=== PATIENT | male | born 1940 | race Caucasian/White ===

== ENCOUNTER → 2016-12-13 | Outpatient (CLI) | payer OTHER, BC ==
--- NOTE | 2016-12-13 11:19 | RAD ---
HISTORY: Pneumonia Study: Two view chest Comparison: None Findings: The lungs are clear without consolidation, effusion or pneumothorax. The cardiac and mediastinal co ntours are within normal limits. The soft tissues are unremarkable. IMPRESSION: 1. No acute cardiopulmonary abnormality. Reported By:
== END ==
LOC: RAD 10:27
PROVIDERS: ATTEND Physician Assistant
DX: J18.9 Pneumonia, unspecified organism (principal)
CPT/HCPCS: 71020

== ENCOUNTER → 2017-06-07 | Outpatient (CLI) | payer OTHER, BC ==
[2017-06-07 11:20] LABS: CALCIUM 9.4 mg/dL (8.5-10.1); CARBON DIOXIDE 33.6 mmol/L (21-32); CHOL/HDL RATIO 4.3 (0.0-5.0); CREATININE 2.16 mg/dL (0.70-1.30)
[2017-06-07 11:25] LABS: HEMOGLOBIN A1C 7.7 % (4.5-6.2)
== END ==
LOC: LAB 10:48
PROVIDERS: ATTEND Physician Assistant
DX: E11.49 Type 2 diabetes mellitus with other diabetic neurological complication (principal)
CPT/HCPCS: 36415; 80048; 80061; 83036

== ENCOUNTER → 2017-07-03 | Outpatient (CLI) | payer OTHER, BC ==
[2017-07-03 15:26] LABS: BASOPHILS # (AUTO) 0.1 X10^3/uL (0.0-0.1); BASOPHILS % (AUTO) 0.7 % (0.2-1.0); EOSINOPHILS # (AUTO) 0.1 x10^3/uL (0.0-0.2); HEMATOCRIT 37.6 % (42.0-54.0); HEMOGLOBIN 13.2 g/dL (13.5-18.0); LYMPHOCYTES # (AUTO) 1.4 X10^3/uL (1.3-2.9); LYMPHOCYTES % (AUTO) 18.9 % (21.0-51.0); MEAN CORPUSCULAR HEMOGLOBIN 31.6 pg (27.0-34.0); MEAN CORPUSCULAR VOLUME 90.1 fL (80.0-100.0); MEAN PLATELET VOLUME 6.8 fL (7.4-11.0); MONOCYTES # (AUTO) 0.3 x10^3/uL (0.3-0.8); NEUTROPHILS # (AUTO) 5.6 x10^3/uL (2.2-4.8); NEUTROPHILS % (AUTO) 74.4 % (42.0-75.0); PLATELET COUNT 213 X10^3/uL (150.0-450.0); RED BLOOD COUNT 4.17 X10^6/uL (4.7-6.0); RED CELL DISTRIBUTION WIDTH 14.4 % (11.6-16.5); WHITE BLOOD COUNT 7.5 X10^3/uL (3.6-10.0)
[2017-07-03 15:35] LABS: ALBUMIN 3.6 g/dL (3.4-5.0); BLOOD UREA NITROGEN 81 mg/dL (7-18); CALCIUM 9.8 mg/dL (8.5-10.1); CARBON DIOXIDE 34.3 mmol/L (21-32); CHLORIDE 94 mmol/L (98-107); COR NA(FOR HYPERGLY) 141 mmol/L (136-145); CREATININE 3.84 mg/dL (0.70-1.30); PHOSPHORUS 5.4 mg/dL (2.6-4.7); SODIUM 137 mmol/L (136-145); eGFR BLACK RACES 20 (>60); eGFR NON BLACK RACES 16 (>60)
[2017-07-03 16:28] LABS: HEMOGLOBIN A1C 8.2 % (4.5-6.2)
[2017-07-03 18:58] LABS: CREATININE,URINE 68.05 mg/dL (40-278); TOTAL PROTEIN,URINE 26.1 mg/dl (0-11.9)
== END ==
LOC: LAB 14:58
PROVIDERS: ATTEND Nurse Practitioner Family
DX: E11.9 Type 2 diabetes mellitus without complications (principal); I12.9 Hypertensive chronic kidney disease with stage 1 through stage 4 chronic kidney disease, or unspecified chronic kidney disease; N18.3 Chronic kidney disease, stage 3 (moderate); R60.1 Generalized edema; E78.4 Other hyperlipidemia
CPT/HCPCS: 36415; 80069; 82306; 82570; 83036; 84157; 85025

== ENCOUNTER 2017-09-04 14:23 | Inpatient (IN) | payer OTHER, BC ==
--- NOTE | 2017-09-04 15:22 | DR.WEAKNES ---
HPI - Time Seen Time seen: 15:10 - Primary Care Physician Primary Care Physician: ENEDELIA ANDREWS - HPI Comment HPI Comment: PATIENT FELL WHEN HE TRY TO MOVE AROUND. HE IS WEAK AND DRAIN OF ENERDY. LOWER EXTREMITIES ARE SWOLLEN. NO FEVER. - Complaints Chief Complaint Doctors Comments: RIGHT SIDED WEAKNESS AND UNABLE TO MOVE RT SIDE TIMES 2 DAYS. Chief Complaint:: EMS OUT TO PT C/O WEAKNESS TIMES 2 DAYS .. PT IS ALERT AND ORIENTED TIMES 4 ... PT DOES HAVE SOME WEAKNESS TO HIS RIGHT SIDE AND HIS LEFT SIDE IS WNL ... - Reviewed Nurses Notes Reviewed: Yes - Source History Provided: Patient, EMS - Mode of Arrival Mode of Arrival: EMS - Timing Onset of Chief Complaint: 09/02/17 Since onset, symptoms are:: Unchanged Symptom Onset: Known Onset of Symptoms Start Date: 09/02/17 - Duration Duration: Constant Duration: Days - Context Onset: Spontaneous Symptoms: Paralysis, Weakness, Numbness History of: Anticoagulant Use Stroke Symptoms: Dizziness - Location Weakness Location: Right, Sided - Associated Signs and Symptoms Associated Signs and Symptoms: None PMH - PMH Past Medical History: Yes Past Medical History: Dialysis, Hypertension Past Surgical History: Yes Past Surgical History Comment: HIP REPLACEMENT. - Family History History of Family Medical Conditions: No - Social History Does patient currently use any type of tobacco product: No Have you used tobacco products in the last 12 months: No Type of Tobacco Use: None Does any household member use tobacco: No Alcohol Use: None Do you use any recreational Drugs:: No Lives With: Family Lives Where: Home - infectious screening In the last 2 months have you had wt loss of >10#?: NO Have you had fever, night sweats or hemotysis?: No Have you traveled outside the country in the last 6 months?: No Isolation: Standard ROS - Review of Systems Constitutional: Weakness, Fatigue. negative: Chills, Fever Eyes: negative: Eye Pain, Discharge ENTM: negative: Ear Pain, Nose Discharge, Nose Congestion, Throat Pain Respiratoy: Non-Productive Cough, Short of Breath (ON EXERTION), Wheezing. negative: Hemoptysis Cardiovascular: Edema Gastrointestinal/Abdominal: negative: Abdominal Pain, Diarrhea, Nausea, Vomiting Genitourinary: negative: Dysuria, Hematuria Neurological: Headache, Weakness Musculoskeletal: Back Pain, Muscle Pain Integumentary: Dryness Hematologic/Lymphatic: No Symptoms Reported Endocrine: No Symptoms Reported Psychiatric: See HPI, Anxiety All Other Systems: Reviewed and Negative PE - Vital Signs Vitals: Temperature 97.5 F Pulse Rate 48 Respiratory Rate 20 Blood Pressure [Left Arm] 169/73 Blood Pressure 190/76 O2 Sat by Pulse Oximetry 98 - General Limitations: No Limitations General Appearance: Alert - Head Head Exam: Normal Inspection Head Exam Physical: Other - Eyes Eye exam: PERRL, EOMI. negative: Scleral Icterus, Conjunctival Injection, Periorbital Swelling, Periorbital Tenderness Eyelids: Normal Inspection: Bilateral Pupils: Regular, Round: Bilateral, Reactive: Bilateral Sclera/Conjunctival: Normal Inspection: Bilateral - ENT ENT Exam: Normal External Ear Exam Mouth Exam: Normal Inspection Throat Exam: Normal Inspection - Neck Neck Exam: Trachea Midline - Chest Chest Inspection: Symmetric Chest Wall Rise - Respiratory Respiratory Exam: Normal Lung Sounds Bilat Respiratory Exam: Bilateral Wheezing, Bilateral Rhonchi, Upper Rhonchi, Lower Wheezing, Lower Rhonchi - Cardiovascular Cardiovascular Exam: Regular Rate, Bradycardia - Abdominal Exam Abdominal Exam: Normal Bowel Sounds, Soft. negative: Tenderness - Extremities Extremities Exam: Normal Inspection, Edema (3PLUS) - Back Back Exam: Paraspinal Tenderness - Neurologic Neurological Exam: Alert, Oriented X3 Patient Oriented To: Person, Place, Time Cranial Nerve Exam: EOM Function (II, III, IV, ): Right Abnormal, Facial Sensation (V): Right Abnormal, Facial Palsy (VII): Normal, Gag reflex (XI): Normal, Tongue Deviation: Normal Motor Strength - LUE: 5/5 Motor Strength - RUE: 0/5 Motor Strength - RLE: 0/5 Upper Motor Neuron Exam: Babinski Sign: Normal DTR: achilles tendon (L): 4+, achilles tendon (R): 0, brachioradialis (L): 4+, brachioradialis (R): 0, Patellar (L): 4+, patellar (R): 0 - Psychiatric Psychiatric Exam: Normal Affect, Normal Mood - Skin Skin Exam: Erythema MDM - Additional Information Obtained Additional Information Obtained From: Family - Differential Diagnosis Differential Diagnosis: CVA, Electrolyte Disorder, Hypoglycemia, Mass Lesion, TIA Course - Treatment Treatment: SEE ORDERS. - Consultation Consultation Comments: DISCUSS PATIENT WITH DR. LILLY. HE WILL ADMIT PATIENT. - Education/Counseling Education/Counseling: Patient, Family, Education Educated On: Diagnosis ROR - Labs Reviewed Result Diagrams: 09/04/17 15:45 09/04/17 15:45 Laboratory: WBC 7.4 X10^3/uL (3.6-10.0) 09/04/17 15:45 RBC 3.77 X10^6/uL (4.7-6.0) L 09/04/17 15:45 Hgb 11.4 g/dL (13.5-18.0) L 09/04/17 15:45 Hct 33.6 % (42.0-54.0) L 09/04/17 15:45 MCV 89.2 fL (80.0-100.0) 09/04/17 15:45 MCH 30.2 pg (27.0-34.0) 09/04/17 15:45 MCHC 33.8 g/dL (33.0-35.0) 09/04/17 15:45 RDW 15.2 % (11.6-16.5) 09/04/17 15:45 Plt Count 267 X10^3/uL (150.0-450.0) 09/04/17 15:45 MPV 6.5 fL (7.4-11.0) L 09/04/17 15:45 Neut % 74.0 % (42.0-75.0) 09/04/17 15:45 Lymph % 16.0 % (21.0-51.0) L 09/04/17 15:45 [place] % 6.0 % (0.0-13.0) 09/04/17 15:45 Eos % 3.1 % (0.9-2.9) H 09/04/17 15:45 Baso % 0.9 % (0.2-1.0) 09/04/17 15:45 Neut # 5.5 x10^3/uL (2.2-4.8) H 09/04/17 15:45 Lymph # 1.2 X10^3/uL (1.3-2.9) L 09/04/17 15:45 [place] # 0.4 x10^3/uL (0.3-0.8) 09/04/17 15:45 Eos # 0.2 x10^3/uL (0.0-0.2) 09/04/17 15:45 Baso # 0.1 X10^3/uL (0.0-0.1) 09/04/17 15:45 Absolute Nucleated RBC 0.0 /100WBC 09/04/17 15:45 Sodium 142 mmol/L (136-145) 09/04/17 15:45 Corrected Sodium 144 mmol/L (136-145) 09/04/17 15:45 Potassium 3.6 mmol/L (3.5-5.1) 09/04/17 15:45 Chloride 101 mmol/L (98-107) 09/04/17 15:45 Carbon Dioxide 34.0 mmol/L (21-32) H 09/04/17 15:45 BUN 41 mg/dL (7-18) H 09/04/17 15:45 Creatinine 2.13 mg/dL (0.70-1.30) H 09/04/17 15:45 Est GFR (MDRD) Af Amer 39 (>60) L 09/04/17 15:45 Est GFR (MDRD) Non-Af 32 (>60) L 09/04/17 15:45 Glucose 168 mg/dL (65-99) H 09/04/17 15:45 Calcium 9.7 mg/dL (8.5-10.1) 09/04/17 15:45 Corrected Calcium 10.4 mg/dL (8.5-10.1) H 09/04/17 15:45 Total Bilirubin 0.60 mg/dL (0.2-1.0) 09/04/17 15:45 AST 35 Units/L (15-37) 09/04/17 15:45 ALT 40 Units/L (12-78) 09/04/17 15:45 Alkaline Phosphatase 100 Units/L (46-116) 09/04/17 15:45 Creatine Kinase 176 Units/L (39-308) 09/04/17 22:45 CK-MB (CK-2) 2.6 ng/mL (0-4.0) 09/04/17 22:45 CK/CKMB % Calc 1.5 % (<4) 09/04/17 22:45 Troponin I 0.07 ng/mL (0-1.5) 09/04/17 22:45 B-Natriuretic Peptide 517 pg/mL (0-79) H* 09/04/17 15:45 Total Protein 7.7 g/dL (6.4-8.2) 09/04/17 15:45 Albumin 3.1 g/dL (3.4-5.0) L 09/04/17 15:45 Globulin 4.6 g/dL (2.5-4.5) H 09/04/17 15:45 Albumin/Globulin Ratio 0.7 Ratio (1.1-2.1) L 09/04/17 15:45 Specimen Type Random urine 09/04/17 16:09 Urine Color Yellow (YELLOW) 09/04/17 16:09 Urine Appearance Clear (CLEAR) 09/04/17 16:09 Urine pH 6.0 (5.0 - 8.0) 09/04/17 16:09 Ur Specific [place] 1.015 (1.000-1.030) 09/04/17 16:09 Urine Protein 2+ (NEGATIVE) 09/04/17 16:09 Urine Glucose (UA) Negative (NEGATIVE) 09/04/17 16:09 Urine Ketones Negative (NEGATIVE) 09/04/17 16:09 Urine Occult Blood 2+ (NEGATIVE) 09/04/17 16:09 Urine Nitrite Negative (NEGATIVE) 09/04/17 16:09 Urine Bilirubin Negative (NEGATIVE) 09/04/17 16:09 Urine Urobilinogen Normal (NORMAL) 09/04/17 16:09 Ur Leukocyte Esterase Negative (NEGATIVE) 09/04/17 16:09 Urine RBC 0-2 /HPF (NEGATIVE) 09/04/17 16:09 Urine WBC Neg /HPF (NEGATIVE) 09/04/17 16:09 Ur Squamous Epith Cells Negative /HPF (NEGATIVE) 09/04/17 16:09 Urine Bacteria Negative /HPF (NEGATIVE) 09/04/17 16:09 Urine Mucus Rare /HPF (NEGATIVE) 09/04/17 16:09 Ur Culture Indicated? No/not indicated 09/04/17 16:09 - XRAY XRAY Interpreted by: Radiologist XRAY Findings: report discuss with patient and family. - EKG Rhythm: SB - Diagnosis Discharge Problem: Right sided weakness, Bradycardia, Renal insufficiency Hypertension Qualifiers: Hypertension type: essential hypertension Qualified Code(s): I10 - Essential ( primary) hypertension - Discharge Plan Disposition: ADMITTED INPATIENT Condition: Stable - Follow ups/Referrals - Instructions
--- NOTE | 2017-09-04 15:46 | RAD ---
Examination: AP chest History: Weakness Comparison reference: 12/13/2016 Findings: Moderate cardiac enlargement with essentially clear lungs and pleural spaces. There is no e vidence for pneumonia, pulmonary edema or other acute process. Impression: Cardiac enlargement. Reported By:
--- NOTE | 2017-09-04 15:51 | CT ---
History: Weakness for 2 days with weakness primarily on the right side Study: CT head without contrast. Sagittal and coronal reformations were provided. Comparison: None Findings: The ventricles and sulci are mildly enlarged without mass effect. There is severe patchy pe riventricular white-matter low attenuation diffusely. There is no hemorrhage or mass or subdural omar ection of fluid. The calvarium is intact and the sinuses are clear except for opacification of a left posterior ethmoid air cell. Impression: 1. Atrophy 2. Moderate severe patchy diffuse periventricular white-matter small-vessel disease. 3. No definite acute disease demonstrated. Reported By:
[2017-09-04 15:54] LABS: BASOPHILS # (AUTO) 0.1 X10^3/uL (0.0-0.1); BASOPHILS % (AUTO) 0.9 % (0.2-1.0); EOSINOPHILS # (AUTO) 0.2 x10^3/uL (0.0-0.2); EOSINOPHILS % (AUTO) 3.1 % (0.9-2.9); HEMATOCRIT 33.6 % (42.0-54.0); HEMOGLOBIN 11.4 g/dL (13.5-18.0); LYMPHOCYTES # (AUTO) 1.2 X10^3/uL (1.3-2.9); MEAN CORPUSCULAR HEMOGLOBIN 30.2 pg (27.0-34.0); MEAN CORPUSCULAR HGB CONC 33.8 g/dL (33.0-35.0); MEAN CORPUSCULAR VOLUME 89.2 fL (80.0-100.0); MEAN PLATELET VOLUME 6.5 fL (7.4-11.0); MONOCYTES # (AUTO) 0.4 x10^3/uL (0.3-0.8); NEUTROPHILS # (AUTO) 5.5 x10^3/uL (2.2-4.8); PLATELET COUNT 267 X10^3/uL (150.0-450.0); RED BLOOD COUNT 3.77 X10^6/uL (4.7-6.0); RED CELL DISTRIBUTION WIDTH 15.2 % (11.6-16.5); WHITE BLOOD COUNT 7.4 X10^3/uL (3.6-10.0)
[2017-09-04 16:10] LABS: CALCIUM 9.7 mg/dL (8.5-10.1); CREATININE 2.13 mg/dL (0.70-1.30); TROPONIN I 0.07 ng/mL (0-1.5)
[2017-09-04 16:15] LABS: ALBUMIN 3.1 g/dL (3.4-5.0); CKMB % 1.7 % (<4); COR CA(FOR HYPOALB) 10.4 mg/dL (8.5-10.1); CREATINE KINASE MB 2.7 ng/mL (0-4.0); TOTAL PROTEIN 7.7 g/dL (6.4-8.2)
[2017-09-04 16:18] LABS: BILIRUBIN,URINE NEGATIVE (NEGATIVE); BLOOD/HEMOGLOBIN,URINE 2+ (NEGATIVE); GLUCOSE, URINE NEGATIVE (NEGATIVE); KETONES,URINE NEGATIVE (NEGATIVE); LEUKOCYTE ESTERASE ,URINE NEGATIVE (NEGATIVE); NITRITES,URINE NEGATIVE (NEGATIVE); PROTEIN,URINE 2+ (NEGATIVE); UROBILINOGEN,URINE NORMAL (NORMAL)
[2017-09-04 16:20] LABS: APPEARANCE,URINE CLEAR (CLEAR); COLOR,URINE YELLOW (YELLOW)
[2017-09-04 16:24] LABS: BACTERIA,URINE NEGATIVE /HPF (NEGATIVE); MUCUS,URINE RARE /HPF (NEGATIVE); RBC,URINE 0-2 /HPF (NEGATIVE); SQUAMOUS EPITHELIAL CELL,UR NEGATIVE /HPF (NEGATIVE)
[2017-09-04] MEDS: NORMODYNE TAB 100 MG PO SCH ×2 (22:02→22:06)
[2017-09-04] MEDS: APRESOLINE TAB 25 MG PO SCH (22:05)
[2017-09-04 23:21] LABS: CKMB % 1.5 % (<4); CREATINE KINASE MB 2.6 ng/mL (0-4.0); TROPONIN I 0.07 ng/mL (0-1.5)
[2017-09-04] MEDS: NS 1000 ML 1,000 ML IV SCH (23:46)
[2017-09-05 06:13] LABS: BASOPHILS % (AUTO) 0.6 % (0.2-1.0); EOSINOPHILS # (AUTO) 0.2 x10^3/uL (0.0-0.2); EOSINOPHILS % (AUTO) 2.8 % (0.9-2.9); HEMATOCRIT 32.9 % (42.0-54.0); HEMOGLOBIN 11.4 g/dL (13.5-18.0); LYMPHOCYTES # (AUTO) 1.1 X10^3/uL (1.3-2.9); LYMPHOCYTES % (AUTO) 15.8 % (21.0-51.0); MEAN CORPUSCULAR HEMOGLOBIN 30.7 pg (27.0-34.0); MEAN CORPUSCULAR HGB CONC 34.5 g/dL (33.0-35.0); MEAN CORPUSCULAR VOLUME 88.7 fL (80.0-100.0); MEAN PLATELET VOLUME 6.8 fL (7.4-11.0); MONOCYTES # (AUTO) 0.4 x10^3/uL (0.3-0.8); MONOCYTES % (AUTO) 6.4 % (0.0-13.0); NEUTROPHILS # (AUTO) 5.2 x10^3/uL (2.2-4.8); NEUTROPHILS % (AUTO) 74.4 % (42.0-75.0); PLATELET COUNT 266 X10^3/uL (150.0-450.0); RED BLOOD COUNT 3.71 X10^6/uL (4.7-6.0); RED CELL DISTRIBUTION WIDTH 15.3 % (11.6-16.5)
[2017-09-05] MEDS: APRESOLINE TAB 25 MG PO SCH ×3 (06:17→21:43)
[2017-09-05] MEDS: HumuLIN R SUBCUT PRN ×4 (06:22→21:45)
[2017-09-05] MEDS ORDERED: HumuLIN R SUBCUT SCH (06:30)
[2017-09-05 06:31] LABS: ALBUMIN 2.9 g/dL (3.4-5.0); CALCIUM 9.2 mg/dL (8.5-10.1); CARBON DIOXIDE 35.2 mmol/L (21-32); CHOL/HDL RATIO 4.9 (0.0-5.0); COR CA(FOR HYPOALB) 10.1 mg/dL (8.5-10.1); CREATININE 2.35 mg/dL (0.70-1.30); MAGNESIUM 1.9 mg/dL (1.7-2.9); TOTAL PROTEIN 7.4 g/dL (6.4-8.2)
[2017-09-05 06:46] LABS: CKMB % 1.2 % (<4); TROPONIN I 0.12 ng/mL (0-1.5)
[2017-09-05] MEDS ORDERED: FENOFIBRATE 48 MG PO SCH (09:15)
[2017-09-05] MEDS: NORVASC TAB 10 MG PO SCH (09:20)
[2017-09-05] MEDS: NORMODYNE TAB 100 MG PO SCH ×2 (09:20→21:41)
[2017-09-05] MEDS ORDERED: ALLEGRA ONE (09:27)
[2017-09-05] MEDS ORDERED: ZOLOFT PO ONE (09:27)
[2017-09-05] MEDS: NEURONTIN CAP 300 MG PO SCH ×3 (09:30→21:43)
[2017-09-05] MEDS: LASIX PO SCH ×2 (09:30→21:43)
[2017-09-05] MEDS: ZOLOFT PO SCH (09:30)
[2017-09-05] MEDS: PLAVIX PO SCH (09:30)
[2017-09-05] MEDS: ASPIRIN EC 81 MG PO SCH (09:30)
[2017-09-05] MEDS: ALLEGRA PO SCH (09:30)
[2017-09-05] MEDS: ZAROXOYLN PO SCH (09:31)
[2017-09-05] MEDS: HYTRIN PO SCH (09:31)
[2017-09-05] MEDS: K-DUR TAB 20 MEQ PO SCH ×3 (09:31→23:50)
[2017-09-05] MEDS: TRICOR TAB 48 MG PO SCH (09:37)
[2017-09-05] MEDS ORDERED: LANTUS SC SCH (10:00)
[2017-09-05 11:13] VITALS: BMI 42.0
--- NOTE | 2017-09-05 12:16 | MRI ---
MRI BRAIN WITHOUT CONTRAST CLINICAL HISTORY: 77-year-old male with right-sided numbness and headache. COMPARISON: None. TECHNIQUE: Multiplanar, multisequence MR images of the brain were obtained without contrast. FINDINGS: Foci of acute diffusion restriction within the posterior aspect of the centrum semiovale extending in to the andino radiata within the precentral gyrus. This is superimposed upon multifocal punctate and confluent T2 FLAIR hyperintense signal abnormalities throughout the white matter with chronic infarct ions in the bilateral anterior centrum semiovale and adjacent to the posterior horn of the left ventr icle and body of the left ventricle with macro cystic encephalomalacia. There are punctate T2 FLAIR h yperintense signal abnormalities within the bilateral cerebellar hemispheres. The craniocervical junction is normal. Pituitary and optic nerve complex are normal. Normal signal ch aracteristics and morphology are demonstrated within the cerebral cortex, corpus callosum, deep ny nuclei and brainstem. The major vascular flow voids, to include the dural venous sinuses, are intact. Age advanced cortical volume loss is present, with commensurate sulcal and ventricular prominence. T he basilar cisterns are normal. Bilateral lens implants. The orbits and globes are otherwise within normal limits. The paranasal sinu ses, tympanic cavities and mastoids are clear. IMPRESSION: 1. Acute ischemic insult left posterior centrum semiovale extending into the andino radiata within th e precentral gyrus without evidence of hemorrhagic transformation. 2. Severe, chronic microvascular white matter ischemic disease with scattered regions of chronic infa rction as described above, with associated volume loss. Reported By:
--- NOTE | 2017-09-05 12:18 | MRI ---
MRA HEAD WITHOUT CONTRAST CLINICAL HISTORY: 77-year-old male with right-sided numbness and headache. History of renal cancer. COMPARISONS: None. TECHNIQUE: 3-D time of flight magnetic resonance angiographic images of the [place] of [place] were obt ained and presented as maximum intensity projection images in rotating format. FINDINGS: Study is limited secondary to patient motion. The vertebral arteries are codominant. Bilateral PICA are present. The basilar artery is normal in ap pearance and gives off normal bilateral AICA superior cerebellar and posterior cerebral arteries. The internal carotid arteries are normal from the distal cervical segments to the carotid terminus. Mode rate caliber right and small caliber left posterior communicating arteries. The middle and anterior c erebral arteries are normal in course and caliber with a left dominant A1 segment. There is a small c aliber anterior communicating artery. IMPRESSION: 1. Motion degraded examination. 2. No aneurysm, high-grade stenosis, complete occlusion, dissection or vascular malformation. Reported By:
[2017-09-05] MEDS ORDERED: POTASSIUM CHL 60 MEQ/NS 0.45% 500 ML IV PRN (12:56)
[2017-09-05] MEDS ORDERED: POTASSIUM CHLORIDE LIQ 20 MEQ UDC PO PRN (12:56)
[2017-09-05] MEDS ORDERED: MAGNESIUM SULFATE 1 GM/100 mL PREMIX 1 GM/100 ML BAG IV PRN (12:56)
[2017-09-05] MEDS ORDERED: POTASSIUM CHL 40 MEQ/NS 0.45% 500 ML IV PRN (12:56)
[2017-09-05] MEDS ORDERED: K-RIDER 10 MEQ/NS 100 ML 10 MEQ/100 ML BAG IV PRN (12:56)
[2017-09-05] MEDS ORDERED: K-LYTE EFFERVESCENT PO PRN (12:56)
[2017-09-05] MEDS ORDERED: MAG-OX TAB PO PRN (12:56)
--- NOTE | 2017-09-05 15:54 | VAS ---
HISTORY: Right-sided numbness Study: Carotid sonogram Comparison: None Technique: Multiple grayscale sonographic images were obtained. Color duplex Doppler evaluation was p erformed. Findings: On the right, there is no significant plaque identified. Peak systolic velocity in the internal carot id artery 50.7 centimeters/second. ICA/CCA ratio 0.81. No stenosis is present. Flow in the right vert ebral artery was antegrade. On the left, there is some plaque present in the internal carotid artery. Peak systolic velocity in the internal carotid artery 43.8 centimeters/second. ICA/CCA ratio 0.46. N o stenosis is present. The left vertebral artery was not identified. IMPRESSION: No hemodynamically significant stenosis identified on either side Reported By:
[2017-09-05] MEDS: LIPITOR TAB 40 MG PO SCH (21:42)
[2017-09-05] MEDS: LANTUS SC SCH (21:43)
[2017-09-05] MEDS: AMBIEN PO SCH (21:43)
[2017-09-05] MEDS: SNACK - Diabetic Appropriate PO SCH (21:50)
[2017-09-05] MEDS: ULTRAM PO PRN (21:56)
[2017-09-06 05:41] LABS: BASOPHILS % (AUTO) 0.4 % (0.2-1.0); EOSINOPHILS # (AUTO) 0.2 x10^3/uL (0.0-0.2); EOSINOPHILS % (AUTO) 2.1 % (0.9-2.9); HEMATOCRIT 33.8 % (42.0-54.0); HEMOGLOBIN 11.7 g/dL (13.5-18.0); LYMPHOCYTES # (AUTO) 1.2 X10^3/uL (1.3-2.9); LYMPHOCYTES % (AUTO) 16.3 % (21.0-51.0); MEAN CORPUSCULAR HEMOGLOBIN 30.5 pg (27.0-34.0); MEAN CORPUSCULAR HGB CONC 34.5 g/dL (33.0-35.0); MEAN CORPUSCULAR VOLUME 88.3 fL (80.0-100.0); MEAN PLATELET VOLUME 6.7 fL (7.4-11.0); MONOCYTES # (AUTO) 0.6 x10^3/uL (0.3-0.8); MONOCYTES % (AUTO) 7.5 % (0.0-13.0); NEUTROPHILS # (AUTO) 5.6 x10^3/uL (2.2-4.8); NEUTROPHILS % (AUTO) 73.7 % (42.0-75.0); PLATELET COUNT 269 X10^3/uL (150.0-450.0); RED BLOOD COUNT 3.83 X10^6/uL (4.7-6.0); RED CELL DISTRIBUTION WIDTH 15.1 % (11.6-16.5); WHITE BLOOD COUNT 7.6 X10^3/uL (3.6-10.0)
[2017-09-06] MEDS: NEURONTIN CAP 300 MG PO SCH ×3 (05:43→21:16)
[2017-09-06] MEDS: APRESOLINE TAB 25 MG PO SCH ×3 (05:43→21:15)
[2017-09-06] MEDS: HumuLIN R SUBCUT PRN ×4 (05:45→21:20)
[2017-09-06 05:50] LABS: ALBUMIN 3.2 g/dL (3.4-5.0); CALCIUM 9.3 mg/dL (8.5-10.1); CARBON DIOXIDE 34.2 mmol/L (21-32); COR CA(FOR HYPOALB) 9.9 mg/dL (8.5-10.1); CREATININE 2.25 mg/dL (0.70-1.30); TOTAL PROTEIN 7.6 g/dL (6.4-8.2)
[2017-09-06] MEDS: ULTRAM PO PRN (06:49)
[2017-09-06] MEDS: NS 1000 ML 1,000 ML IV SCH ×3 (07:04→11:59)
[2017-09-06] MEDS ORDERED: ALLEGRA ONE (07:42)
[2017-09-06] MEDS: NORMODYNE TAB 100 MG PO SCH ×2 (08:39→21:15)
[2017-09-06] MEDS: ASPIRIN EC 81 MG PO SCH (08:39)
[2017-09-06] MEDS: LASIX PO SCH ×2 (08:39→21:16)
[2017-09-06] MEDS: ZAROXOYLN PO SCH (08:39)
[2017-09-06] MEDS: NORVASC TAB 10 MG PO SCH (08:39)
[2017-09-06] MEDS: ALLEGRA PO SCH (08:40)
[2017-09-06] MEDS: K-DUR TAB 20 MEQ PO SCH ×2 (08:40→21:15)
[2017-09-06] MEDS: HYTRIN PO SCH (08:40)
[2017-09-06] MEDS: LANTUS SC SCH ×2 (08:41→21:21)
[2017-09-06] MEDS: PLAVIX PO SCH (08:41)
[2017-09-06] MEDS ORDERED: ZOLOFT PO ONE (09:08)
[2017-09-06] MEDS: ZOLOFT PO SCH (10:29)
[2017-09-06] MEDS: TRICOR TAB 48 MG PO SCH (10:29)
[2017-09-06] MEDS: MILK OF MAGNESIA PO SCH ×3 (13:01→21:13)
[2017-09-06] MEDS: COLACE CAP 100 MG PO SCH ×2 (13:02→21:16)
[2017-09-06] MEDS: MIRALAX POWDER (1 DOSE 17GM) PO SCH (13:08)
[2017-09-06] MEDS: LIPITOR TAB 40 MG PO SCH (21:15)
--- NOTE | 2017-09-06 21:15 | US ---
RENAL ULTRASOUND History: Renal failure Comparison: None Technique: Multiple ny scale and color flow Doppler images of the kidneys were obtained. The regio n of the urinary bladder was evaluated as well. Findings: Right kidney is absent. The left kidney measures 13.8 cm. Poorly seen hypoechoic area measuring approximately 3.3 cm. The region of the urinary bladder is grossly unremarkable. IMPRESSION: 1. Right kidney absent. 2. Possible left renal cyst. This is not well seen in could be further evaluated with MRI if clinical ly indicated. Reported By:
[2017-09-06] MEDS: AMBIEN PO SCH (21:16)
[2017-09-06] MEDS: SNACK - Diabetic Appropriate PO SCH (21:28)
[2017-09-07] MEDS: APRESOLINE TAB 25 MG PO SCH ×2 (05:39→14:55)
[2017-09-07] MEDS: NEURONTIN CAP 300 MG PO SCH ×2 (05:39→14:55)
[2017-09-07] MEDS: HumuLIN R SUBCUT PRN ×2 (05:40→12:48)
[2017-09-07] MEDS: NS 1000 ML 1,000 ML IV SCH ×2 (05:44→14:56)
[2017-09-07 06:01] LABS: ALBUMIN 3.2 g/dL (3.4-5.0); CALCIUM 9.3 mg/dL (8.5-10.1); CARBON DIOXIDE 34.7 mmol/L (21-32); COR CA(FOR HYPOALB) 9.9 mg/dL (8.5-10.1); CREATININE 2.35 mg/dL (0.70-1.30); TOTAL PROTEIN 7.6 g/dL (6.4-8.2)
[2017-09-07 06:09] LABS: BASOPHILS % (AUTO) 0.6 % (0.2-1.0); EOSINOPHILS # (AUTO) 0.2 x10^3/uL (0.0-0.2); EOSINOPHILS % (AUTO) 2.8 % (0.9-2.9); HEMATOCRIT 35.1 % (42.0-54.0); LYMPHOCYTES % (AUTO) 11.7 % (21.0-51.0); MEAN CORPUSCULAR HEMOGLOBIN 30.2 pg (27.0-34.0); MEAN CORPUSCULAR HGB CONC 34.3 g/dL (33.0-35.0); MEAN CORPUSCULAR VOLUME 88.2 fL (80.0-100.0); MEAN PLATELET VOLUME 6.7 fL (7.4-11.0); MONOCYTES # (AUTO) 0.6 x10^3/uL (0.3-0.8); MONOCYTES % (AUTO) 6.6 % (0.0-13.0); NEUTROPHILS # (AUTO) 6.6 x10^3/uL (2.2-4.8); NEUTROPHILS % (AUTO) 78.3 % (42.0-75.0); PLATELET COUNT 279 X10^3/uL (150.0-450.0); RED BLOOD COUNT 3.98 X10^6/uL (4.7-6.0); RED CELL DISTRIBUTION WIDTH 14.9 % (11.6-16.5); WHITE BLOOD COUNT 8.5 X10^3/uL (3.6-10.0)
[2017-09-07] MEDS ORDERED: ZOLOFT PO ONE (08:17)
[2017-09-07] MEDS ORDERED: ALLEGRA ONE (08:17)
[2017-09-07] MEDS: MIRALAX POWDER (1 DOSE 17GM) PO SCH (08:30)
[2017-09-07] MEDS: LASIX PO SCH (08:30)
[2017-09-07] MEDS: ZOLOFT PO SCH (08:31)
[2017-09-07] MEDS: MILK OF MAGNESIA PO SCH ×2 (08:31→14:56)
[2017-09-07] MEDS: ALLEGRA PO SCH (08:31)
[2017-09-07] MEDS: ASPIRIN EC 81 MG PO SCH (08:31)
[2017-09-07] MEDS: NORVASC TAB 10 MG PO SCH (08:32)
[2017-09-07] MEDS: ZAROXOYLN PO SCH (08:32)
[2017-09-07] MEDS: HYTRIN PO SCH (08:32)
[2017-09-07] MEDS: TRICOR TAB 48 MG PO SCH (08:32)
[2017-09-07] MEDS: PLAVIX PO SCH (08:34)
[2017-09-07] MEDS: COLACE CAP 100 MG PO SCH (08:35)
[2017-09-07] MEDS: NORMODYNE TAB 100 MG PO SCH (08:36)
[2017-09-07] MEDS: LANTUS SC SCH (08:40)
[2017-09-07] MEDS: K-DUR TAB 20 MEQ PO SCH (08:42)
[2017-09-07] MEDS ORDERED: LASIX PO SCH (11:05)
[2017-09-07 14:00] VITALS: BP 138/72
[2017-09-07] MEDS ORDERED: TRICOR TAB 48 MG ONE (20:40)
--- NOTE | 2017-09-07 21:14 | PCM.PROG ---
Progress Note - Progress Note for Day of Date: 09/06/17 - Subjective Subjective: WAS ADMITTED ON 09/04/2017 WITH RIGHT SIDED WEAKNESS, BRADYCARDIA, AND HYPERTENSION. HE APPARENTLY FELL MONDAY NIGHT AND HAS BEEN WEAK SINCE THEN. INITIAL BRAIN CT THAT WAS OBTAINED OVER 48 HOURS POST FALL WAS NEGATIVE FOR CVA. A BRAIN MRI WAS OBTAINED ON THE DAY FOLLOWING ADMISSION AND REPORTED ACUTE ISCHEMIC INSULT LEFT POSTERIOR CENTRUM SEMIOVALE EXTENDING INTO THE REYES RADIATA WITHIN THE PRECENTRAL GYRUS WITHOUT EVIDENCE OF HEMORRHAGIC TRANSFORMATION. PERTINENT MEDICAL HISTORY INCLUDES HYPERTENSION, BPH, DEPRESSION , HYPERLIPIDEMIA, CHRONIC RENAL FAILURE, RIGHT HIP REPLACMENT, RIGHT HEMICOLECTOMY, RIGHT PARTIAL COLECTOMY, RIGHT NEPHRECTOMY. HE IS NEW TO OUR PRACTICE. HE HAS BEEN UNDER THE CARE OF A PHYSICIAN IN [place], [place]. TODAY, HE IS ALERT AND ORIENED, SITTING UP IN CHAIR ON MORNING ROUNDS. HEART IS REGULAR IN RATE AND RHYTHM. BILATERAL LUNGS ARE CLEAR TO AUSCLTATION. ABDOMEN IS ROUND, SOFT, AND NON-TENDER WITH NORMAL BOWEL SOUNDS NOTED IN ALL QUADRANTS. HE IS NOTED WITH 2/5 STRENGTH TO RIGHT ARM AND RIGHT LEG. NORMAL RANGE OF MOTION NOTED TO LEFT UPPER AND LOWER EXTREMITIES. HIS VITAL SIGNS THIS MORNING ARE 98.4 -80-20-96%-140/64. LABS WERE OBTAINED. ABNORMAL LAB VALUES INCLUDE THE FOLLOWING : RBC 3.83, HGB 11.7, HCT 33.8, POTASSIUM 2.7, CARBON DIOXIDE 34.2, BUN 44, CREATININE 2.25, GLUCOSE 214, ALBUMIN 3.2. TODAY, WE WILL OBTAIN A RENAL ULTRASOUND. PATIENT REPORTS USING AN AUTO CPAP AT BEDTIME. HIS WILL OBTAIN IT FROM HOME TODAY FOR HIM TO USE TONIGHT. PLANS HAVE BEEN MADE FOR PATIENT TO BE TRANSFERRED TO [facility] AFTER DISCHARGE FOR REHAB AND PHYSICAL THERAPY FOR THREE WEEKS. WE ARE IN AGREEMENT WITH PLAN. WE PLAN TO CORRECT POTASSIUM WITH THE POTASSIUM PROTOCOL, OTHERWISE, CONTINUE WITH CURRENT PLAN OF CARE. WE WILL FOLLOW UP WITH AM LABS AND CONTINUE TO MONITOR PATIENT. - Past Medical Family Social History Past Med/Fam/Surg Hx: No changes since H&P Allergies: Allergies No Known Drug Allergies Allergy (Verified 09/04/17 16:08) - Review of Systems ROS: No change since H&P - Vital Signs and I&O's Vital Signs: Temperature 98.1 F Pulse Rate [Left Radial] 85 Pulse Rate 48 Respiratory Rate 20 Blood Pressure [Right Arm] 140/64 Blood Pressure [Left Arm] 138/72 Blood Pressure 190/76 O2 Sat by Pulse Oximetry 96 Intake and Output: Intake & Output 09/05/17 09/06/17 09/07/17 09/08/17 11:59 11:59 11:59 11:59 Intake Total 905 1880 1820 600 Output Total 900 Balance 712 272 4964 600 - Physical Exam Oriented: Normal Eyes: Normal Ear: Normal Nose: Normal Throat: Normal Respiratory: Normal Cardiovascular: Normal : Normal Auscultation: Bowel Sounds: Normal Palpation: Normal Tenderness: Normal Skin: Normal Musculoskeletal: Right, Arm, Leg, Motor Deficit Psychiatric: Normal Mood Description: Calm Affect: Normal Speech Pattern: Clear, Appropriate - Laboratory and Diagnostics Result Diagrams: 09/07/17 04:05 09/07/17 11:20 Labs: Laboratory WBC 8.5 X10^3/uL (3.6-10.0) 09/07/17 04:05 RBC 3.98 X10^6/uL (4.7-6.0) L 09/07/17 04:05 Hgb 12.0 g/dL (13.5-18.0) L 09/07/17 04:05 Hct 35.1 % (42.0-54.0) L 09/07/17 04:05 MCV 88.2 fL (80.0-100.0) 09/07/17 04:05 MCH 30.2 pg (27.0-34.0) 09/07/17 04:05 MCHC 34.3 g/dL (33.0-35.0) 09/07/17 04:05 RDW 14.9 % (11.6-16.5) 09/07/17 04:05 Plt Count 279 X10^3/uL (150.0-450.0) 09/07/17 04:05 MPV 6.7 fL (7.4-11.0) L 09/07/17 04:05 Neut % 78.3 % (42.0-75.0) H 09/07/17 04:05 Lymph % 11.7 % (21.0-51.0) L 09/07/17 04:05 [place] % 6.6 % (0.0-13.0) 09/07/17 04:05 Eos % 2.8 % (0.9-2.9) 09/07/17 04:05 Baso % 0.6 % (0.2-1.0) 09/07/17 04:05 Neut # 6.6 x10^3/uL (2.2-4.8) H 09/07/17 04:05 Lymph # 1.0 X10^3/uL (1.3-2.9) L 09/07/17 04:05 [place] # 0.6 x10^3/uL (0.3-0.8) 09/07/17 04:05 Eos # 0.2 x10^3/uL (0.0-0.2) 09/07/17 04:05 Baso # 0.0 X10^3/uL (0.0-0.1) 09/07/17 04:05 Absolute Nucleated RBC 0.0 /100WBC 09/07/17 04:05 INR Target Range - 09/05/17 05:15 INR 1.14 (0.8-1.3) 09/05/17 05:15 PTT 35.4 SECONDS (22.9-36.5) 09/05/17 05:15 PTT Comment - 09/05/17 05:15 Sodium 143 mmol/L (136-145) 09/07/17 04:05 Corrected Sodium 146 mmol/L (136-145) H 09/07/17 04:05 Potassium 3.1 mmol/L (3.5-5.1) L 09/07/17 11:20 Chloride 100 mmol/L (98-107) 09/07/17 04:05 Carbon Dioxide 34.7 mmol/L (21-32) H 09/07/17 04:05 BUN 51 mg/dL (7-18) H 09/07/17 04:05 Creatinine 2.35 mg/dL (0.70-1.30) H 09/07/17 04:05 Est GFR (MDRD) Af Amer 35 (>60) L 09/07/17 04:05 Est GFR (MDRD) Non-Af 29 (>60) L 09/07/17 04:05 Glucose 213 mg/dL (65-99) H 09/07/17 04:05 POC Glucose (mg/dL) 272 mg/dL (65-99) H 09/07/17 12:28 Calcium 9.3 mg/dL (8.5-10.1) 09/07/17 04:05 Corrected Calcium 9.9 mg/dL (8.5-10.1) 09/07/17 04:05 Magnesium 2.4 mg/dL (1.7-2.9) 09/07/17 04:05 Total Bilirubin 0.70 mg/dL (0.2-1.0) 09/07/17 04:05 AST 32 Units/L (15-37) 09/07/17 04:05 ALT 29 Units/L (12-78) 09/07/17 04:05 Alkaline Phosphatase 100 Units/L (46-116) 09/07/17 04:05 Creatine Kinase 165 Units/L (39-308) 09/05/17 05:15 CK-MB (CK-2) 2.0 ng/mL (0-4.0) 09/05/17 05:15 CK/CKMB % Calc 1.2 % (<4) 09/05/17 05:15 Troponin I 0.12 ng/mL (0-1.5) 09/05/17 05:15 B-Natriuretic Peptide 517 pg/mL (0-79) H* 09/04/17 15:45 Total Protein 7.6 g/dL (6.4-8.2) 09/07/17 04:05 Albumin 3.2 g/dL (3.4-5.0) L 09/07/17 04:05 Globulin 4.4 g/dL (2.5-4.5) 09/07/17 04:05 Albumin/Globulin Ratio 0.7 Ratio (1.1-2.1) L 09/07/17 04:05 Triglycerides 239 mg/dL (0-150) H 09/05/17 05:15 Cholesterol 112 mg/dL (0-200) 09/05/17 05:15 LDL Cholesterol, Calc 41 mg/dL (0-100) 09/05/17 05:15 HDL Cholesterol 23 mg/dL (40-60) L 09/05/17 05:15 Cholesterol/HDL Ratio 4.9 (0.0-5.0) 09/05/17 05:15 Specimen Type Random urine 09/04/17 16:09 Urine Color Yellow (YELLOW) 09/04/17 16:09 Urine Appearance Clear (CLEAR) 09/04/17 16:09 Urine pH 6.0 (5.0 - 8.0) 09/04/17 16:09 Ur Specific [place] 1.015 (1.000-1.030) 09/04/17 16:09 Urine Protein 2+ (NEGATIVE) 09/04/17 16:09 Urine Glucose (UA) Negative (NEGATIVE) 09/04/17 16:09 Urine Ketones Negative (NEGATIVE) 09/04/17 16:09 Urine Occult Blood 2+ (NEGATIVE) 09/04/17 16:09 Urine Nitrite Negative (NEGATIVE) 09/04/17 16:09 Urine Bilirubin Negative (NEGATIVE) 09/04/17 16:09 Urine Urobilinogen Normal (NORMAL) 09/04/17 16:09 Ur Leukocyte Esterase Negative (NEGATIVE) 09/04/17 16:09 Urine RBC 0-2 /HPF (NEGATIVE) 09/04/17 16:09 Urine WBC Neg /HPF (NEGATIVE) 09/04/17 16:09 Ur Squamous Epith Cells Negative /HPF (NEGATIVE) 09/04/17 16:09 Urine Bacteria Negative /HPF (NEGATIVE) 09/04/17 16:09 Urine Mucus Rare /HPF (NEGATIVE) 09/04/17 16:09 Ur Culture Indicated? No/not indicated 09/04/17 16:09 - Plan (1) Cerebrovascular accident (CVA) with involvement of right side of body Status: Acute Plan: CONTINUE ASPIRIN DAILY, CONTINUE PLAVIX DAILY, CONTINUE LIPITOR DAILY, CONTINUE ANTIHYPERTENSIVES, PHYSICAL THERAPY AND OCCUPATIONAL THERAPY, CONTINUE TO MONITOR (2) Chronic renal failure Status: Acute Qualifiers: Chronic kidney disease stage: unspecified stage Qualified Code(s): N18.9 - Chronic kidney disease, unspecified Plan: OBTAIN RENAL ULTRASOUND, CONTINUE LASIX, CONTINUE ZAROXOLYN, CONTINUE TO MONITOR
== END 2017-09-07 15:30 | DRG 66 ==
LOC: ER 14:26 → MED/SURG 18:56
PROVIDERS: ADMIT Internal Medicine; ATTEND Internal Medicine
DX: I63.8 Other cerebral infarction (principal); R53.1 Weakness; R00.1 Bradycardia, unspecified; I12.9 Hypertensive chronic kidney disease with stage 1 through stage 4 chronic kidney disease, or unspecified chronic kidney disease; N18.9 Chronic kidney disease, unspecified; R94.31 Abnormal electrocardiogram [ECG] [EKG]; N40.0 Benign prostatic hyperplasia without lower urinary tract symptoms; E78.2 Mixed hyperlipidemia; F32.89 Other specified depressive episodes; E11.65 Type 2 diabetes mellitus with hyperglycemia
CPT/HCPCS: 36415; 70450; 70544; 70551; 71045; 76770; 80053; 80061; 81001; 82550; 82553; 82947; 83735; 83880; 84132; 84484; 85025; 85610; 85730; 93005; 93010; 93880; 94760; 95811; 99284; A4222; J1815; J3480

== ENCOUNTER → 2017-10-11 | Outpatient (CLI) | payer OTHER, BC ==
--- NOTE | 2017-10-11 16:44 | RAD ---
HISTORY: Shortness of breath Study: Single-view of the chest Comparison: September 04, 2017 Findings: The cardiac silhouette is enlarged with mild prominence of the central pulmonary vasculature. The lef t lower lobe is partially obscured by overlying soft tissues. IMPRESSION: Cardiomegaly with prominence of the central pulmonary vasculature similar to prior exam. Reported By:
== END ==
LOC: RAD 15:13
PROVIDERS: ATTEND Internal Medicine
DX: R06.02 Shortness of breath (principal)
CPT/HCPCS: 71045

== ENCOUNTER → 2017-10-17 | Outpatient (CLI) | payer OTHER, BC ==
--- NOTE | 2017-10-17 13:59 | CT ---
Examination: CT of the head. Clinical history: AMS. Technique: Multiple axial images were obtained from the skull base to the vertex. Dose reduction tech niques including automated exposure control (AEC) and adjustment of mA and kV were utilized. Comparison: 09/04/2017. Findings: Stable extensive nonspecific periventricular white matter changes are noted, likely due to small vess el ischemic disease. There is no intra-, or extra-axial hemorrhage, acute infarct or mass lesion noted. There is prominence of the CSF spaces consistent with age related cerebral atrophy. The ventricles ar e symmetric about the midline, with no midline shift or mass effect noted. The posterior fossa, brain stem and orbital regions are within normal limits. Atherosclerotic calcifi cations are seen associated with the internal carotid arteries bilaterally and the vertebral arteries bilaterally. There is patchy opacification of the ethmoid air cells, which could be due to mucous or mild inflamma tory sinus disease. No additional bony or soft tissue abnormality is noted. Impression: 1. No acute infarct or hemorrhage. 2. Age-related cerebral atrophy. 3. Stable extensive nonspecific periventricular white matter changes are noted, likely due to small v essel ischemic disease. 4. There is patchy opacification of the ethmoid air cells, which could be due to mucous or mild infla mmatory sinus disease. Reported By:
== END ==
LOC: RAD 11:14
PROVIDERS: ATTEND Internal Medicine
DX: R41.82 Altered mental status, unspecified (principal)
CPT/HCPCS: 70450

== ENCOUNTER → 2017-10-26 | Outpatient (CLI) | payer OTHER, BC | END | disposition home or self-care (01) | LOC: RAD 14:01 | PROVIDERS: ATTEND Internal Medicine | DX: I51.7 Cardiomegaly (principal) | CPT/HCPCS: 93306 ==

== ENCOUNTER → 2017-11-02 | Outpatient (CLI) | payer OTHER, BC ==
--- NOTE | 2017-11-03 07:20 | VAS ---
HISTORY: Nonhealing wound Study: Bilateral lower extremity arterial Doppler evaluation Comparison: None Technique: Multiple grayscale sonographic images were obtained. Color duplex Doppler evaluation was p erformed. Findings: On the right, flow was identified from the common femoral through the dorsalis pedis artery is. Doppl er waveforms were triphasic in the common femoral superficial femoral head and distal popliteal arter y is but biphasic in the proximal popliteal artery and the posterior tibial artery. There is a veloci ty spike between the mid and distal posterior tibial artery is suggestive of the possibility of a sig nificant stenosis in this area. On the left, flow was identified from the common femoral through the dorsalis pedis artery. Waveforms were triphasic through the proximal posterior tibial artery and biph asic distally. There are no velocity spikes to suggest a focal greater than 50% stenosis. IMPRESSION: Findings suggestive of the possibility of a significant stenosis peak right posterior tibial artery b ased on a velocity spike in that area. No definite evidence for significant atherosclerotic obstructive disease in the left lower extremity Reported By:
== END | disposition home or self-care (01) ==
LOC: RAD 12:29
PROVIDERS: ATTEND Internal Medicine
DX: S90.921A Unspecified superficial injury of right foot, initial encounter (principal); X58.XXXA Exposure to other specified factors, initial encounter
CPT/HCPCS: 93925